=== PATIENT | male | born 1970 | race Caucasian/White ===

== ENCOUNTER 2017-03-17 20:53 | Emergency (ER) | payer MEDICAID ==
[2017-03-17] MEDS ORDERED: Acetaminophen/oxyCODONE 325-5 MG Tab ONE (21:15)
[2017-03-17 22:50] VITALS: BP 148/72
--- NOTE | 2017-03-18 02:01 | ER ---
HISTORY OF PRESENT ILLNESS: A 46-year-old male who comes in with complaints of injuring his left elbow and left arm. He tells me he was on a roof yesterday, replacing a roof. 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 The patient sustained injuries to the left ankle and lower leg, and he also noticed some pain just above the left elbow. This happened yesterday. The patient went home. He has been applying ice and resting. He did have some hydrocodone tablets left from a previous situation. He took some of those but he tells me that the pain does not seem to be improving much. He has been told by several people today to come in for evaluation, and he finally decided that he should. The patient denies any numbness of his toes. He is complaining of pain mostly in the ankle area and some shooting pain radiating up into the distal portion of the lower leg. The patient denies any other injuries that involved his head, neck, chest, or abdomen. He has not been nauseated. He has not been vomiting. CURRENT MEDICATIONS: Clonazepam, ibuprofen, and [place] tablets p.r.n. ALLERGIES: MEDICATION ALLERGIES: KEFLEX. OBJECTIVE: GENERAL APPEARANCE: The patient is awake and alert. No obvious respiratory distress. VITAL SIGNS: Reviewed. He rates his pain at 6/10. EXTREMITIES: Examination of the patient's left ankle reveals moderate swelling and some bruising bilaterally. The patient is having pain on the medial, anterior, and lateral side of the ankle and some shooting pain just above the ankle joint. The mid and distal foot are normal in appearance and nontender with light palpation. The patient does not have any pain or discomfort with palpation of the proximal lower leg pain. Examining the left upper arm reveals a large bruise on the medial side of the distal upper arm. The skin is intact both involving the arm as well as the left ankle and foot. The patient has full and unguarded range of motion involving the left arm and shoulder. LAB AND X-RAY STUDIES: X-rays were obtained showing a medial malleolus fracture with some displacement. The joint space appears to be intact at this time. DIAGNOSIS: Ankle fracture with displacement. TREATMENT PLAN: I did consult with Dr. Milan, orthopedist in [place]. He will see the patient tomorrow morning in [place] for surgical consult. At this time, a posterior splint was applied, held in place with Ishmael wraps. I did pad the ankle as well. The patient was given crutches, RICE therapy was discussed, and he was given Percocet to take 1 tablet every 4-6 hours regularly at this time. He is to be n.p.o. after midnight. The patient was informed of these instructions and has a driver medic to take him to [place] tomorrow morning. BELTRAN/CESILIA /[id number]
--- NOTE | 2017-03-18 08:23 | CR ---
DATE OF SERVICE: 03/17/17 CLINICAL DATA: Injury - fell off a roof 1 day ago. LEFT LOWER LEG: No acute fracture or dislocation. No lytic or blastic bone lesions. [id number] [facility]
--- NOTE | 2017-03-18 08:26 | CR ---
DATE OF SERVICE: 03/17/17 CLINICAL DATA: Injury - fell off a 2nd story roof 1 day ago. LEFT ANKLE: There is a displaced transverse fracture through the medial malleolus, with adjacent soft tissue swelling. No other acute abnormalities. [id number] [facility]
== END 2017-03-17 22:10 | disposition home or self-care (01) ==
LOC: LB.ED 20:53
DX: S82.52XA Displaced fracture of medial malleolus of left tibia, initial encounter for closed fracture (principal); Z88.8 Allergy status to other drugs, medicaments and biological substances; X58.XXXA Exposure to other specified factors, initial encounter
CPT/HCPCS: 29105; 73590; 73600; 99283; A9270

== ENCOUNTER 2017-04-24 21:09 | Emergency (ER) | payer MEDICAID ==
[2017-04-24] MEDS ORDERED: ClonazePAM 1 MG Tab PO PRN (21:19)
[2017-04-24] MEDS ORDERED: ClonazePAM 1 MG Tab ONE (21:30)
[2017-04-24 21:50] VITALS: BP 153/93
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
== END 2017-04-24 22:20 | disposition home or self-care (01) ==
LOC: LB.ED 21:09
DX: F41.9 Anxiety disorder, unspecified (principal); K21.9 Gastro-esophageal reflux disease without esophagitis; G43.909 Migraine, unspecified, not intractable, without status migrainosus; F17.210 Nicotine dependence, cigarettes, uncomplicated; Z79.899 Other long term (current) drug therapy; Z88.1 Allergy status to other antibiotic agents
CPT/HCPCS: 36415; 80053; 85025; 99283; A9270

== ENCOUNTER 2018-06-04 18:57 | Emergency (ER) | payer MEDICAID ==
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
== END 2018-06-04 19:36 | disposition home or self-care (01) ==
LOC: LB.ED 18:57
DX: F41.9 Anxiety disorder, unspecified (principal); K21.9 Gastro-esophageal reflux disease without esophagitis; Z79.899 Other long term (current) drug therapy; Z88.8 Allergy status to other drugs, medicaments and biological substances
CPT/HCPCS: 99283

== ENCOUNTER 2019-08-03 17:32 | Emergency (ER) | payer MEDICAID ==
[2019-08-03] MEDS ORDERED: ClonazePAM 1 MG Tab ONE (17:35)
[2019-08-03] MEDS ORDERED: Sodium Chloride 0.9% 1,000 ML IV ONE (18:11)
[2019-08-03 18:20] VITALS: BP 142/100; PULSE 96
--- NOTE | 2019-08-03 23:15 | ER ---
HISTORY OF PRESENT ILLNESS: A 48-year-old male who comes in by ambulance after having a seizure at home. The seizure activity quit before the patient was brought into the ER and upon arrival to the ER, he was once again awake complaining of a headache and muscle aches. The patient has been on clonazepam and Catapres. He tells me this has been working well for him and over the last few months they have been weaning him down on his medication and there has been times when he has had to take more of it and therefore he runs out. He has been out of his medication for about 4 days. The patient was seen this afternoon in the clinic just a couple of hours ago where a CMP and UA were done which were normal. The patient is in the process of a consult with Psychiatry to further monitor and adjust his medications as needed. The patient is here with his significant other. She states that she was in the home when this happened. She did not see him fall, but he was lying face down on the floor and shaking when she first saw him. OBJECTIVE: GENERAL APPEARANCE: The patient is awake and alert. Pleasant and talkative. VITAL SIGNS: Reviewed. Blood pressure is 142/110. He is afebrile, respirations 16. HEENT: Eyes, pupils equal, round, and reactive to light. EOMs are intact. Head is normocephalic. There is no sign of head or scalp injury. NECK: Supple. LUNGS: Clear. CARDIAC: Heart sounds distinct without murmurs. The patient is able to move his arms and legs with just some stiffness. DIAGNOSIS: Seizure with history of the same, currently resolved. TREATMENT PLAN: I will give the patient Valium 5 mg IV, and a liter of normal saline. I will send him home with clonazepam tablets, 6 tablets, he is to take 1 b.i.d. taking his first 1 at bedtime tonight. The patient states he has also been trying to diet and he has basically been starving himself. The CMP from earlier today looked reasonable or normal. I advised the patient needs to go home and eat something this evening as well. Followup is next week with his primary care provider, sooner as needed. BELTRAN/MODL /[id number]
== END 2019-08-03 19:20 | disposition home or self-care (01) ==
LOC: LB.ED 17:32
DX: R56.9 Unspecified convulsions (principal)
CPT/HCPCS: 96361; 96374; 99284-25; A0425; A0429; A9270-GY; J3360; J7030

== ENCOUNTER → 2019-08-03 | Outpatient (CLI) | payer MEDICAID | LOC: LB.CLINIC 15:31 | PROVIDERS: ATTEND Nurse Practitioner Family | DX: F41.9 Anxiety disorder, unspecified (principal); H93.19 Tinnitus, unspecified ear | CPT/HCPCS: 36415; 80048; 81001; 84443 ==

== ENCOUNTER 2019-10-01 03:47 | Emergency (ER) | payer MEDICAID ==
[2019-10-01] MEDS ORDERED: ClonazePAM 0.5 MG Tab PO ONE (04:07)
[2019-10-01 04:40] VITALS: BP 155/95; PULSE 78
== END 2019-10-01 04:25 | disposition home or self-care (01) ==
LOC: LB.ED 03:47
DX: F19.980 Other psychoactive substance use, unspecified with psychoactive substance-induced anxiety disorder (principal); I10 Essential (primary) hypertension; Z79.899 Other long term (current) drug therapy; Z86.59 Personal history of other mental and behavioral disorders
CPT/HCPCS: 99283; A9270-GY

== ENCOUNTER 2019-10-29 06:38 | Emergency (ER) | payer MEDICAID ==
[2019-10-29 07:16] VITALS: BP 126/89; PULSE 73
[2019-10-29] MEDS ORDERED: diazePAM 5 MG/ML MDV IV ONE (07:54)
[2019-10-29] MEDS ORDERED: diazePAM 5 MG/ML MDV ONE (08:06)
--- NOTE | 2019-10-29 12:13 | ER ---
REASON FOR EMERGENCY ROOM VISIT: Recent seizures. HISTORY: This 49-year-old man has been on clonazepam 1 mg p.o. b.i.d. for anxiety for a number of years now. He has had a history of running out of this medication and having seizures that has been attributed to withdrawal. He has not always taken his clonazepam as prescribed for anxiety and has on several occasions taken up to twice the prescribed amount and therefore runs out of the medication before his renewal date. During these periods of time, he has had seizures in the past requiring emergency room visits and treatment and additional clonazepam. He had run out of his clonazepam about 4 days ago. Yesterday, he had some nausea and vomiting that was followed by a seizure that was witnessed by his fiancee. At that time, he had what appears to be a tonoclonic activity and he fell to the floor. He did not strike anything or injure anything in this process. He was not incontinent of urine. He recovered from this spontaneously, and this morning, he had another similar episode according to the patient and his firobbe. He had last taken clonazepam 48 hours ago. He states that he still feels some nausea, but no diarrhea. He has not had any vomiting. He denies any fever or chills or coughing. He states he takes his Klonopin for "nerves." His primary care provider is Dr. Shultz. PAST MEDICAL HISTORY: 1. Anxiety disorder. 2. Spinal stenosis of cervical region with radiculopathy. MEDICATIONS: 1. Ibuprofen p.r.n. or Tylenol. 2. Klonopin 1 mg p.o. b.i.d. ALLERGIES: TO CEPHALEXIN. SOCIAL HISTORY: He lives with his kathya. He has 2 daughters who do not live with him, they are healthy. He is a smoker. He denies any alcohol, but he does admit to occasional use of marijuana "once in a blue meneses." He denies any other drugs of abuse. 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 REVIEW OF SYSTEMS: Pertinent positives and negatives as listed in the HPI. PHYSICAL EXAMINATION: GENERAL: He is alert and appropriate and in no acute distress. At this time, he does not show any evidence of a postictal state. VITAL SIGNS: He is afebrile. Heart rate is 96, blood pressure 135/88, respirations 16, O2 sats 97% on room air. HEENT: Head is normocephalic. TMs are normal. Oropharynx, no erythema or exudates. He does have a small healing crusting vesicle over his right lower lip area. NECK: Supple. No adenopathy. CHEST: Clear to auscultation with good air exchange bilaterally. CARDIAC: Regular rate without murmur. ABDOMEN: Soft and nontender. No masses. No hepatosplenomegaly. EXTREMITIES: Normal pulses. No edema. NEUROLOGIC: He is alert and oriented x3. Deep tendon reflexes are symmetrical and brisk bilaterally in the lower extremities. His muscle strength bulk and tone are normal and symmetrical bilaterally in the upper and lower extremities. Sensation is normal to crude touch. SKIN: No rashes. LABORATORY DATA: The CBC is normal. His BMP shows normal electrolytes. He has an anion gap of 18.2. His liver enzymes are normal. His urinalysis is within normal limits. Urine toxicology screen was positive for benzodiazepines and THC. IMPRESSION: 1. Probable recent seizure and possibly related to clonazepam withdrawal. 2. Anxiety. 3. THC abuse. PLAN: He was given an IV and 500 mL normal saline as well as 5 mg of IV diazepam. He remained stable and the labs were reviewed. He was given a prescription for clonazepam 1 mg, dispense #12 tablets. This should give him enough time to get in to see his provider where they can discuss management of his anxiety and appropriate and whether or not additional medications can be added to his regimen, so that he can slowly be taken off the clonazepam. He feels that this is sensible and agrees to this plan. All questions were answered. FERN/CESILIA /[id number]
== END 2019-10-29 10:13 | disposition home or self-care (01) ==
LOC: LB.ED 06:38
DX: F12.10 Cannabis abuse, uncomplicated (principal); F41.9 Anxiety disorder, unspecified; Z79.899 Other long term (current) drug therapy
CPT/HCPCS: 36415; 80053; 80307; 81001; 85025; 87804; 96374; 99285; A0425; A0429; J3360; 99283

== ENCOUNTER 2020-02-11 08:56 | Emergency (ER) | payer MEDICAID ==
[2020-02-11] MEDS ORDERED: LORazepam 2 MG/ML SDV IVPUSH ONE (09:17)
[2020-02-11] MEDS ORDERED: Sodium Chloride 0.9% 10 ML Syringe FLUSH PRN (09:17)
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
[2020-02-11] MEDS ORDERED: LORazepam 2 MG/ML SDV ONE (09:43)
[2020-02-11 10:28] VITALS: BP 150/89; PULSE 89
--- NOTE | 2020-02-11 10:29 | CR ---
DATE OF SERVICE: 02/11/20 CLINICAL DATA: Chest pain. PA AND LATERAL CHEST: No priors. The heart size is normal. The lungs are clear. No pneumothorax. No pleural effusions. No evidence of acute intrathoracic disease. [id number] MTDD
== END 2020-02-11 10:33 | disposition home or self-care (01) ==
LOC: LB.ED 08:56
DX: F41.9 Anxiety disorder, unspecified (principal); Z88.1 Allergy status to other antibiotic agents; Z79.899 Other long term (current) drug therapy
CPT/HCPCS: 36415; 71046; 80048; 84484; 85025; 93005; 96374; 99285-25; J2060

== ENCOUNTER 2021-02-05 11:30 | Emergency (ER) | payer MEDICAID ==
[2021-02-05] MEDS ORDERED: LORazepam 2 MG/ML SDV IVPUSH ONE (11:55)
[2021-02-05] MEDS ORDERED: Sodium Chloride 0.9% 1,000 ML IV ONE (11:55)
[2021-02-05] MEDS ORDERED: levETIRAcetam 500 MG in Sodium Chloride 0.9% 100 ML IV ONE (11:55)
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
[2021-02-05 12:07] VITALS: BP 151/92; PULSE 104
[2021-02-05] MEDS ORDERED: Orphenadrine 60 MG/2 ML Inj IV ONE (12:29)
[2021-02-05] MEDS ORDERED: Ketorolac 30 MG/ML SDV IVPUSH ONE (12:31)
[2021-02-05] MEDS ORDERED: Ketorolac 30 MG/ML SDV ONE (13:05)
== END 2021-02-05 13:50 | disposition home or self-care (01) ==
LOC: LB.ED 11:49
DX: G40.409 Other generalized epilepsy and epileptic syndromes, not intractable, without status epilepticus (principal); Z88.1 Allergy status to other antibiotic agents
CPT/HCPCS: 36415; 80048; 85025; 96374; 96375; 99284-25; J1885; J1953; J2060; J2360; J7030

== ENCOUNTER 2021-03-02 21:51 | Emergency (ER) | payer MEDICAID ==
[2021-03-02] MEDS: ClonazePAM 0.5 MG Tab PO ONE (22:22)
[2021-03-02 22:24] VITALS: BP 160/127; PULSE 80
[2021-03-02] MEDS ORDERED: ClonazePAM 0.5 MG Tab ONE (23:00)
--- NOTE | 2021-03-03 07:13 | ER ---
HISTORY OF PRESENT ILLNESS: A 50-year-old male who comes in with his significant other with complaints of a possible seizure. The patient has longstanding history of seizures. He has been taking Klonopin 1 mg t.i.d. to control both seizures and anxiety issues and he ran out of his medication. He contacted his doctor's office, but the refill did not go through today. The patient states he thinks another seizure starting he can usually tell for a little while before they get going. He feels lightheaded and has seen spots a couple of times. The patient states he does not feel real good. He states this is typically how it goes when he does not have his medication. OBJECTIVE: GENERAL APPEARANCE: The patient is awake and alert. He is quite talkative. VITAL SIGNS: Reviewed. Blood pressure 160/127, pulse is 80. He is afebrile. O2 sats 99% on room air, respirations 16. LUNGS: Clear. CARDIAC: Heart sounds distinct without murmurs. SKIN: Warm and dry. EYES: Pupils equal, round, and reactive to light. EOMs are intact without strabismus, nystagmus, or ptosis. DIAGNOSES: 1. Anxiety with underlying seizure history. 2. Chronic benzodiazepine use, currently out of medication. TREATMENT PLAN: I will give him Klonopin 1 mg p.o. and we will monitor the patient here until he starts to feel better and then he will be able to go home with his significant other driving him. I will give him a script for 2 more days of Klonopin to bridge the time between now and when he can get his prescription filled from his primary care provider. I had a talk with the patient about being seen by Neurology. He states that this has been discussed and is going to happen at some point fairly soon. I feel the patient most likely needs to be on some other kind of maintenance medication for seizures such as Keppra. The patient states that he only took it once. He was given a dose in the ER when he did not feel good and he did not like the way it made him feel. I also think part of his symptoms tonight are with early stage withdrawal symptoms from suddenly stopping a fairly high dose of clonazepam use. The patient has no further questions. CRS/MODL /[id number]
== END 2021-03-02 23:12 | disposition home or self-care (01) ==
LOC: LB.ED 21:51
DX: F41.9 Anxiety disorder, unspecified (principal); F13.90 Sedative, hypnotic, or anxiolytic use, unspecified, uncomplicated; Z86.69 Personal history of other diseases of the nervous system and sense organs
CPT/HCPCS: 99283; A9270-GY

== ENCOUNTER 2021-11-28 09:07 | Emergency (ER) | payer MEDICAID ==
[2021-11-28] MEDS: ClonazePAM 0.5 MG Tab ONE (09:58)
[2021-11-28] MEDS: ClonazePAM 0.5 MG Tab PO ONE (09:58)
[2021-11-28 10:03] VITALS: BP 152/91; PULSE 70
[2021-11-28] MEDS ORDERED: ClonazePAM 0.5 MG Tab ONE (10:30)
[2021-11-30] MEDS: ClonazePAM 0.5 MG Tab ONE ×2 (10:22→10:23)
== END 2021-11-28 10:28 | disposition home or self-care (01) ==
LOC: LB.ED 09:07
DX: R07.89 Other chest pain (principal); F41.9 Anxiety disorder, unspecified; F13.230 Sedative, hypnotic or anxiolytic dependence with withdrawal, uncomplicated; I10 Essential (primary) hypertension; K21.9 Gastro-esophageal reflux disease without esophagitis; Z88.1 Allergy status to other antibiotic agents; Z79.899 Other long term (current) drug therapy; Z72.0 Tobacco use
CPT/HCPCS: 36415; 71045; 80048; 84484; 85025; 99285; A0425; A0429; A9270; 93005